=== PATIENT | female | born 2000 | race Native Hawaiian/Other Pacific Islander ===

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

== ENCOUNTER 2020-09-10 10:07 | Observation (INO) | payer BC, OTHER ==
[~2020-09-10] VITALS: Ht 154.9 cm; Wt 49.0 kg
--- NOTE | 2020-09-10 11:15 | NUR ---
PT ADMITTED TO [id number] VIA WHEELCHAIR, NAD NOTED AT THE TIME OF ADMISSION, PT SITTING ON BED, NONLABORED BREATHING, PT HAS REDDNESS AND SWELLING NOTED TO RT HAND, PT ALSO HAS REDDNESS TO BILAT TOES, PT HAS NO COMPLAINTS OF N/V, PAIN, OR SOB
[2020-09-10 13:06] LABS: PLATELET COUNT 248 K/uL (152-353)
[2020-09-10 13:44] LABS: POTASSIUM 3.8 mmol/L (3.6-5.2); SODIUM 137 mmol/L (136-145)
--- NOTE | 2020-09-10 16:30 | NUR ---
PT RECEIVED SOLUMEDROL 125MG IV AT 1500, PT STATES HER CHEEKS ARE STARTING TO ITCH AND ARE BECOMING FLUSHED, HER UPPER LIP HAS SLIGHT SWELLING AND RT NOSTRIL, PT BEGAN FORMING A RASH TO BACK AND POSTERIOR THIGHS, DR. SYED ORDERS BENADRYL 50MG IV ONCE NOW, AND HYDROCOTISONE CREAME Q8 PRN FOR SKIN IRRITATIONS, DR. SYED ALSO ORDERS ATIVAN 1MG Q8H PRN FOR ANXIETY, NO FURTHER ORDERS AT THIS TIME
--- NOTE | 2020-09-10 16:47 | NUR ---
PT RECIEVED BENADRYL 50MG AND ATIVAN 1 MG BOTH IV, PT TOLERATED WELL, PT HAS NO SIGNS OF SOB, WILL REASSESS RASH AND MEDICATION
--- NOTE | 2020-09-10 17:20 | NUR ---
PT STATES SHE FEELS ALOT BETTER AFTER MEDCIATION ADMINISTRATION, PT HAS NO FLUSHING TO CHEEKS AND THE RASH TO BACK AND THIGHS ARE GONE, PT IS DROWSY AT THIS TIME, PLASMA IS INFUSING WITHOUT DIFFICULTY AND NO REACTIONS NOTED, DR. SYED ORDERS TO HOLD VITAMIN D, ZINC, STEROID, AND REMDESIVIR AT THIS TIME, NO FURTHER ORDERS AT THIS TIME
[2020-09-10 18:21] VITALS: BP 114/71; TEMP 98.5
[2020-09-10 18:29] VITALS: BP 118/87; TEMP 98.3; Ht 154.9 cm; Wt 49.0 kg
[2020-09-10 18:41] VITALS: BP 108/66; TEMP 98.4
[2020-09-10 20:00] VITALS: BP 104/67; BP 123/57; TEMP 98.4; TEMP 99.9
--- NOTE | 2020-09-10 22:34 | NUR ---
PT AWAKE WATCHING TV. NO DISTRESS NOTED.
[2020-09-10 23:59] VITALS: BP 100/59; TEMP 98.4
--- NOTE | 2020-09-11 00:09 | NUR ---
PT C/O ITCHING AROUND ANKLES.HYDROCORTISONE CREAM GIVEN TO PT TO APPLY AT ITCHING SITES.
--- NOTE | 2020-09-11 01:53 | NUR ---
HAVE SPOKEN TO T'S MOTHER 5X SO FAR THIS SHIFT. MOTHER SAID SHE COULDN'T GET HER ON THE PHONE. WENT TO PT'S ROOM AND FOUND HER ASLEEP. CALLED PT'S MOTHER BACK AND INFORMED HER OF THE SAME. HEART RATE 75 BPM AT THIS TIME.
[2020-09-11 03:52] VITALS: BP 106/68; TEMP 98.7
[2020-09-11 05:54] LABS: PLATELET COUNT 254 K/uL (152-353)
--- NOTE | 2020-09-11 06:10 | NUR ---
PT AWAKE DENIES ITCHING AT THIS TIME. NO RESPIRATORY DISTRESS NOTED. HEART RATE 87BPM AT THIS TIME.
[2020-09-11 08:00] VITALS: BP 96/50; TEMP 98.5
[2020-09-11 12:00] VITALS: BP 104/64; TEMP 97.9
[2020-09-11 16:00] VITALS: BP 106/68; TEMP 97.8
[2020-09-11 20:19] VITALS: BP 111/68; TEMP 98.1
--- NOTE | 2020-09-11 22:36 | NUR ---
PT RESTING QUIETLY. NO DISTRESS NOTED. HEART RATE 96BPM.
[2020-09-11 23:40] VITALS: BP 99/56; TEMP 98.5
--- NOTE | 2020-09-12 01:14 | NUR ---
0110: PT SLEEPING. NO DISTRESS NOTED. HEART RATE 88 BPM.
[2020-09-12 04:00] VITALS: BP 90/57; TEMP 98.3
[2020-09-12 05:42] LABS: PLATELET COUNT 184 K/uL (152-353)
[2020-09-12 06:02] LABS: POTASSIUM 3.6 mmol/L (3.6-5.2)
[2020-09-12 08:00] VITALS: BP 114/98; TEMP 97.9
[2020-09-12 12:00] VITALS: BP 104/56; TEMP 98.9
--- NOTE | 2020-09-12 18:36 | NUR ---
PT DC INSTRUCTIONS GIVEN AND EXPLAINED, PT VERBALIZED UNDERSTANDING, IV REMOVED WITH CATHETER INTACT, FOLLOWUP APPT MADE WITH DR. SYED ON 09/14/20 AT 1100, PT DC VIA AMBULATION TO PRIVATE VEHICLE, NAD NOTED
== END 2020-09-12 17:50 | disposition home or self-care (01) ==
LOC: MED/SURG 10:07
PROVIDERS: ADMIT Family Medicine; ATTEND Family Medicine
DX: U07.1 COVID-19 (principal); F41.8 Other specified anxiety disorders; R07.89 Other chest pain; L50.8 Other urticaria
CPT/HCPCS: 36415; 36430; 80053; 82550; 82728; 83735; 84100; 84484; 85027; 85379; 86140; 86900; 86901; 87040; 94667; 94668; 94760; 96365; 96366; 96372; 96374; 96375; 99220; G0378; G0379; J0456; J1200; J1650; J2060; J2930; P9017